=== PATIENT | male | born 1925 | race Caucasian/White ===

== ENCOUNTER 2016-05-15 08:42 | Emergency (ER) | payer MEDICARE, OTHER ==
[~2016-05-15 08:42] MED LIST: ADVIL200 MG PO; ALEVE220 M4 PO; ALEVE220 MG PO; ALLOPURINOL100 MG PO; ASPIR 8181 MG PO; AUGMENTIN 875-1 EAC2 PO; B-121000 MC2 PO; COLACE100 M1 PO; D3 PO; ELIQUIS2.5 M1 PO; KEFLEX500 MG PO; NORCO 5/3251 TA1 PO; PEPCID AC10 M1 PO; TOPROL XL100 MG PO; TOPROL XL25 M1 PO; TRAMADOL HCL50 M2 PO; TUMS500 MG PO; TYLENOL325 M2 PO; VITAMIN C PO; ZYLOPRIM300 M1 PO
[2016-05-15] MEDS ORDERED: ALEVE220 M4 PO (09:52)
== END 2016-05-15 11:36 ==
LOC: EDMED 08:42
PROC: 0HQ1XZZ Repair Face Skin, External Approach (ICD-10-PCS; principal; 2016-05-15)
DX: S01.81XA Laceration without foreign body of other part of head, initial encounter (principal); S60.419A Abrasion of unspecified finger, initial encounter; I10 Essential (primary) hypertension; I48.91 Unspecified atrial fibrillation; W01.10XA Fall on same level from slipping, tripping and stumbling with subsequent striking against unspecified object, initial encounter; Y92.410 Unspecified street and highway as the place of occurrence of the external cause